=== PATIENT | male | born 2000 ===

== ENCOUNTER 2023-08-07 10:33 | Outpatient (AMB) | payer OTHER, SELFPAY ==
--- NOTE | 2023-08-07 10:32 | AM.OFFWIN_ITS ---
Intake Vital Signs 08/07/23 10:36 Height 5 ft 9 in Weight 221 lb BMI 32.6 BP 130/100 H Blood Pressure Location Lt brachial Position Sitting Pulse 71 Pulse Source Pulse Oximeter Temp 97.6 F Temp Source Temporal Artery Scan Pulse Oximetry (%) 98 Oxygen Delivery Method Room Air Intake Visit Reasons: [employer]/ right side ear/jaw pain (lobby) Intake Note: pt is here today for rt side ear and jaw pain started today Patient Tobacco Use Status: Never used Tobacco Allergies No Known Allergies Allergy (Verified 08/07/23 10:39) Do you need a note to return to daycare/school/sports/work: No HPI HPI Comments History of Present Illness Details This is a 22-year-old male with a past medical history of anxiety and depression presenting for evaluation of right ear pain that radiates to his right jaw that he 1st noticed last night. Patient reports an echoing sensation and ringing in his right ear. Patient denies any injury, trauma, recent airline travel and also denies any sore throat, pain with mastication, fevers, chills or left ear pain. Patient has taken Advil for relief of his discomfort and tried to rinse his ear with hydrogen peroxide this morning. [facility] Social History Patient Tobacco Use Status: Never used Tobacco Review of Systems Const All systems reviewed & are unremarkable except as noted in HPI and below Reports as per HPI ENT Denies ear discharge, Reports otalgia (left), Denies facial pain, Denies sinus pressure, Denies sore throat and Denies throat swelling Card Reports no additional complaints Resp Reports no additional complaints Psych Reports no additional complaints Aller/Immun Denies throat swelling Physical Exam Vital Signs: Last Vital Signs Temp 97.6 F 08/07/23 10:36 Pulse 71 08/07/23 10:36 BP 130/100 H 08/07/23 10:36 Pulse Ox 98 08/07/23 10:36 Oxygen Delivery Method Room Air 08/07/23 10:36 BMI result Body Mass Index 32.6 Patient is afebrile Const General: cooperative, healthy appearing, comfortable, no acute distress, well developed, alert and awake; No lethargic Nutritional Appearance: average body habitus Orientation/consciousness: patient oriented x3 and No lethargic Limitations: no limitations HEENT Head: Yes normocephalic and Yes atraumatic Ears: hearing grossly normal bilaterally, external ears normal, right TM abnormal (right TM bulging with erythema; no fluid level noted), TM normal on the left and EAC's normal General nose exam: Normal external nose present Face and sinus: Yes normal facial exam Mouth: Normal oral and palatal mucosa present Teeth and gingiva: dentition normal, gingiva normal and normal teeth and gingiva Throat: Yes posterior oropharynx normal and No postnasal drainage Neck Neck: Yes normal visual inspection Lymphatic: no lymphadenopathy noted Neuro General: patient oriented x3 Assessment & Plan Assessment & Plan (1) Otitis media of right ear: Comment: Patient's history coupled with his examination is consistent with a right otitis media; no dental abnormalities are noted on examination. Code(s): H66.91 - Otitis media, unspecified, right ear Qualifiers: Otitis media type: unspecified Qualified Code(s): H66.91 - Otitis media, unspecified, right ear Plan: Augmentin 500 mg b.i.d. x7 days. Ibuprofen or Tylenol as needed for discomfort. Medications: New amoxicillin-pot clavulanate 500-125 mg (Augmentin) 1 tab PO BID 14 tabs 0RF Coding Level of Care Code New Pt Level 3 (19197) Diagnoses Right otitis media, unspecified otitis media type H66.91 Otitis media type: unspecified Time Spent (min) 20
[2023-08-07 10:36] VITALS: BP 130/100; PULSE 71; TEMP 36.4; O2SAT 98; BMI 32.6
== END 2023-08-07 11:06 | disposition home or self-care (01) ==
PROVIDERS: Visit Provider Physician Assistant
DX: H66.91 Otitis media, unspecified, right ear (principal)
CPT/HCPCS: 99203

== ENCOUNTER 2023-08-13 12:25 | Outpatient (AMB) | payer OTHER, SELFPAY ==
--- NOTE | 2023-08-13 12:57 | AM.OFFWIN_ITS ---
Intake Vital Signs 08/13/23 13:00 Height 5 ft 9 in Weight 221 lb BMI 32.6 BP 130/90 H Blood Pressure Location Rt brachial Position Sitting Pulse 72 Pulse Source Pulse Oximeter Temp 97.9 F Temp Source Oral Pulse Oximetry (%) 98 Intake Visit Reasons: EST/right side jaw pain (lobby) Intake Note: pt is here for right jaw pain Patient Tobacco Use Status: Never used Tobacco Allergies No Known Allergies Allergy (Verified 08/13/23 12:58) Do you need a note to return to daycare/school/sports/work: No HPI HPI Comments History of Present Illness Details The patient presents to urgent care for evaluation of right ear blockage. He feels as though his right ear is blocked he does not have any pain. He states that he was here last week for jaw and ear pain and was diagnosed with an inner ear infection placed on amoxicillin. He is completing his course of amoxicillin and the pain has improved however he is left with this feeling as though he is under water in the right ear. [facility] Social History Patient Tobacco Use Status: Never used Tobacco Physical Exam Vital Signs: Last Vital Signs Temp 97.9 F 08/13/23 13:00 Pulse 72 08/13/23 13:00 BP 130/90 H 08/13/23 13:00 Pulse Ox 98 08/13/23 13:00 BMI result Body Mass Index 32.6 Const General: healthy appearing and no acute distress HEENT Other: Left ear canal and TM unremarkable, right ear canal erythematous and swollen Head: Yes normal to inspection Mouth: Normal oral and palatal mucosa present Throat: Yes posterior oropharynx normal Chest Chest palpation & inspection: normal inspection of the chest Resp Effort & Inspection: normal respiratory effort and able to speak in complete sentences Assessment & Plan Assessment & Plan (1) Otitis externa: Code(s): H60.90 - Unspecified otitis externa, unspecified ear Plan Patient has evidence of mild otitis externa on the right. Will treat with topical antibiotic drops. Recommend follow-up with PCP Medications: New [id number]-[id number]-GQ 3.5-10,000-1 mg/mL-unit/mL-% 4 drps otic (ear) left Q6H 7 days 10 mL 0RF Coding Level of Care Code Est Pt Level 3 (51154) Diagnoses Otitis externa H60.90
[2023-08-13 13:00] VITALS: BP 130/90; PULSE 72; TEMP 36.6; O2SAT 98; BMI 32.6
== END 2023-08-13 14:28 | disposition home or self-care (01) ==
PROVIDERS: Visit Provider Emergency Medicine
DX: H60.91 Unspecified otitis externa, right ear (principal)
CPT/HCPCS: 99213